=== PATIENT | male | born 1980 | race Caucasian/White ===

== ENCOUNTER 2017-01-15 13:17 | Emergency (ER) | payer OTHER ==
[2017-01-15 13:39] VITALS: BP 124/91; PULSE 76; TEMP 98.1; BMI 30.5
[2017-01-15] MEDS ORDERED: NAPROXEN 500 MG TABLET (FP) PO ONE (14:01)
[2017-01-15] MEDS ORDERED: NAPROXEN 500 MG TABLET (FP) ONE (14:03)
--- NOTE | 2017-01-15 15:19 | PDOC ---
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 He fell onto an outstretched left hand and has left wrist pain. He reports that he hyperextended his thumb and has pain there as well. He reports some low back pain. He denies head trauma or any other injuries. REVIEW OF SYSTEMS: GENERAL/CONSTITUTIONAL: No fever or chills. No weakness. No weight change. HEAD, EYES, EARS, NOSE AND THROAT: No change in vision. No ear pain or discharge. No sore throat. CARDIOVASCULAR: No chest pain or palpitations. RESPIRATORY: No cough, wheezing, or shortness of breath. GASTROINTESTINAL: No nausea, vomiting, diarrhea or constipation. GENITOURINARY: No dysuria, frequency, or change in urination. MUSCULOSKELETAL: Left wrist pain, low back pain. SKIN: No rash or easy bruising. NEUROLOGIC: No headache, vertigo, loss of consciousness, or loss of sensation. PSYCHIATRIC: No depression or anxiety. ENDOCRINE: No increased thirst. No abnormal weight change. HEMATOLOGIC/LYMPHATIC: No anemia, easy bleeding, or history of blood clots. ALLERGIC/IMMUNOLOGIC: No hives or skin allergy. No latex allergy. PHYSICAL EXAM: GENERAL: The patient is awake, alert, and fully oriented, in no acute distress. HEAD: Normal with no signs of trauma. ENT: Pupils equal, round and reactive to light, extraocular movements intact, sclera anicteric, conjunctiva clear. Neck supple. LUNGS: Clear to auscultation bilaterally. Normal excursion. No respiratory distress or use of accessory muscles. CV: RRR, S1/S2, no MRG. Cap refill < 2 sec. ABDOMEN: Soft, non-distended, non-tender. EXTREMITIES: Mild tenderness at left distal radius. Able to move all fingers. Able to flex and extend thumb. Sensation intact. NEUROLOGICAL: Normal speech, normal gait. CN II-XII grossly intact. PSYCH: Normal mood, normal affect. SKIN: Warm, dry, normal turgor, no rashes or lesions noted. Past History - Past Medical History Allergies/Adverse Reactions: Allergies Allergy/AdvReac Type Severity Reaction Status Date / Time No Known Allergies Allergy Verified 01/15/17 13:36 Home Medications: Ambulatory Orders Albuterol 0.083% Nebulizer Kay [Ventolin 0.083%] 1 neb NEB Q4H 04/20/14 Montelukast Na [Singulair -] 10 mg PO HS #30 tablet 04/20/14 Salmeterol/Fluticasone [Advair 250Mcg/50Mcg] 1 inh IH BID #1 inh 04/20/14 Naproxen [Naprosyn -] 500 mg PO BID #14 tablet 01/15/17 Asthma: Yes - Psycho/Social/Smoking Cessation Hx Anxiety: No Suicidal Ideation: No Smoking History: Never smoked Have you smoked in the past 12 months: No Number of Cigarettes Smoked Daily: 0 Information on smoking cessation initiated: No Hx Alcohol Use: No Drug/Substance Use Hx: No Substance Use Type: None *Physical Exam - Vital Signs Last Vital Signs Temp Pulse Resp BP Pulse Ox 98.1 F 76 18 124/91 100 01/15/17 13:36 01/15/17 13:36 01/15/17 13:36 01/15/17 13:36 01/15/17 13:36 ED Treatment Course - RADIOLOGY Radiology Studies Ordered: Category Date Time Status SPINE-LUMBAR ONLY [RAD] Stat Radiology 01/15/17 14:01 Completed WRIST W/HAND-RIGHT* [RAD] Stat Radiology 01/15/17 14:01 Completed - Medications Given in the ED: ED Medications Discontinued Medications Generic Name Dose Route Start Last Admin Trade Name Delmis PRN Reason Stop Dose Admin Naproxen 500 mg 01/15/17 14:01 01/15/17 14:04 Naprosyn - PO 01/15/17 14:02 500 mg ONCE ONE Administration Medical Decision Making - Medical Decision Making 01/15/17 17:31 A/P: 36 year old male with wrist pain and low back pain s/p fall. -Wrist and lumbar spine xrays: no acute process -NSAID given -Volar splint placed -Referred to orthopedics -Return precautions reviewed *DC/Admit/Observation/Transfer Diagnosis at time of Disposition: Low back pain, Fall Wrist pain Qualifiers: Laterality: left Qualified Code(s): M25.532 - Pain in left wrist - Discharge Dispostion Disposition: HOME Condition at time of disposition: Stable Admit: No - Prescriptions Prescriptions: Naproxen [Naprosyn -] 500 mg PO BID #14 tablet - Referrals Referrals: Ever Petty MD [Staff Physician] - 14 days (If not improving) - Patient Instructions Printed Discharge Instructions: DI for Wrist Sprain Additional Instructions: -Wear the splint provided for your comfort; take it off as needed -Apply ice to the painful area for 15 minutes at a time, 5 times daily -Take Naproxen as prescribed -Follow up with orthopedics if you are not improving in 2 weeks -Return here for any concerning symptoms - Post Discharge Activity Work/School Note: Back to Work
== END 2017-01-15 15:26 | disposition home or self-care (01) ==
LOC: JERFT 13:17
PROC: 2W3CX1Z Immobilization of Right Lower Arm using Splint (ICD-10-PCS; principal; 2017-01-15)
DX: M54.5 Low back pain (principal); M25.531 Pain in right wrist; V78.0XXA Driver of bus injured in noncollision transport accident in nontraffic accident, initial encounter; Y92.488 Other paved roadways as the place of occurrence of the external cause; Y93.89 Activity, other specified; Y99.0 Civilian activity done for income or pay
CPT/HCPCS: 72100-TC; 73110-TC-RT; 73130-TC-RT; 99281-25

== ENCOUNTER 2019-02-04 12:44 | Emergency (ER) | payer OTHER ==
[2019-02-04 12:55] VITALS: BP 127/77; PULSE 84; TEMP 98.2; BMI 30.5
--- NOTE | 2019-02-04 12:55 | PDOC ---
Rapid Medical Evaluation Time Seen by Provider: 02/04/19 12:53 Medical Evaluation: Allergies Allergy/AdvReac Type Severity Reaction Status Date / Time No Known Allergies Allergy Verified 02/04/19 12:52 02/04/19 12:53 I have performed a brief in-person evaluation of this patient. The patient presents with a chief complaint of: left arm pain s/p trip and fall Pertinent physical exam findings: no focal findings. I have ordered the following: xray, ice The patient will proceed to the ED for further evaluation. Discharge Disposition - Diagnosis Left arm pain - Referrals - Patient Instructions - Post Discharge Activity
--- NOTE | 2019-02-04 14:15 | PDOC ---
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 He complains of left shoulder and elbow pain Past History - Past Medical History Allergies/Adverse Reactions: Allergies Allergy/AdvReac Type Severity Reaction Status Date / Time No Known Allergies Allergy Verified 02/04/19 12:52 Home Medications: Ambulatory Orders Albuterol 0.083% Nebulizer Kay [Ventolin 0.083%] 1 neb NEB Q4H 04/20/14 Montelukast Na [Singulair -] 10 mg PO HS #30 tablet 04/20/14 Salmeterol/Fluticasone [Advair 250Mcg/50Mcg] 1 inh IH BID #1 inh 04/20/14 Naproxen [Naprosyn -] 500 mg PO BID #14 tablet 01/15/17 Asthma: Yes COPD: No - Immunization History Immunization Up to Date: No - Suicide/Smoking/Psychosocial Hx Smoking History: Current some day smoker Have you smoked in the past 12 months: No Number of Cigarettes Smoked Daily: 0 Information on smoking cessation initiated: No Hx Alcohol Use: No Drug/Substance Use Hx: No Substance Use Type: None Review of Systems - Review of Systems Musculoskeletal: Yes: Joint Pain *Physical Exam - Vital Signs Last Vital Signs Temp Pulse Resp BP Pulse Ox 98.2 F 84 18 127/77 100 02/04/19 12:53 02/04/19 12:53 02/04/19 12:53 02/04/19 12:53 02/04/19 12:53 - Physical Exam Comments: 02/04/19 14:15 Examination is out of proportion to the findings. Patient refuses to move the shoulder elbow. He has tenderness to light touch which is again out of proportion without gross sensory motor deficits he is difficult to examine. Medical Decision Making - Medical Decision Making 02/04/19 14:15 The left shoulder and elbow show no evidence of fracture trauma or destructive process. Left elbow and shoulder strain follow-up with orthopedic Tylenol Motrin for pain. *DC/Admit/Observation/Transfer Diagnosis at time of Disposition: Left arm pain - Discharge Dispostion Disposition: HOME Condition at time of disposition: Stable Decision to Admit order: No - Referrals Referrals: Justin Orellana MD [Primary Care Provider] - Sergio Gregg DO [Staff Physician] - - Patient Instructions Additional Instructions: Tylenol and Motrin for pain. Return to the emergency room should symptoms worsen. Follow-up with orthopedics in 1-2 days without fail for further evaluation and treatment options. - Post Discharge Activity Forms/Work/School Notes: Back to Work
== END 2019-02-04 14:56 | disposition home or self-care (01) ==
LOC: JERFT 12:44 → JER 12:44 → JERFT 14:56
DX: S46.812A Strain of other muscles, fascia and tendons at shoulder and upper arm level, left arm, initial encounter (principal); S56.812A Strain of other muscles, fascia and tendons at forearm level, left arm, initial encounter; V79.88XA Bus occupant (driver) (passenger) injured in other specified transport accidents, initial encounter; Y93.89 Activity, other specified; Y92.89 Other specified places as the place of occurrence of the external cause; Y99.0 Civilian activity done for income or pay
CPT/HCPCS: 73030-TC-LT-FY; 73070-TC-LT-FY; 99281-25